=== PATIENT | male | born 1965 ===

== ENCOUNTER 2021-12-18 10:26 | Day surgery (SDC) | payer OTHER ==
[~2021-12-18] VITALS: Ht 180.3 cm; Wt 119.6 kg
[~2021-12-18 10:26] MED LIST: ALBU90OI INH; FISH OIL 1,2001 EAC7 PO; FLONASE SENSIM5.9 M1; FLUT1DIS5 INH; LEVSOD25 PO; WIXELA 250-501 EAC1 INH; ZYRTEC10 M2 PO
--- NOTE | 2021-12-18 11:22 | NUR ---
12/18/21 1122 Thuy Thurston GTT: 1103 PLEDGETT: 1104
== END 2021-12-18 12:43 | disposition home or self-care (01) ==
LOC: ORSCSDS 10:26
PROVIDERS: Ophthalmology
PROC: 08RK3JZ Replacement of Left Lens with Synthetic Substitute, Percutaneous Approach (ICD-10-PCS; principal; 2021-12-18 12:00)
DX: H25.12 Age-related nuclear cataract, left eye (principal); I10 Essential (primary) hypertension; Z87.891 Personal history of nicotine dependence; Z79.899 Other long term (current) drug therapy; E66.9 Obesity, unspecified; Z68.36 Body mass index [BMI] 36.0-36.9, adult
CPT/HCPCS: 82947; J2001; J2250; J3010; J3301; J7040; V2632